=== PATIENT | female | born 1975 | race Caucasian/White ===

== ENCOUNTER → 2018-12-15 12:47 | Outpatient (CLI) | payer SELFPAY ==
[2018-12-21 10:45] LABS: HPV Reflexed? NOT INDICATED
== END ==
PROVIDERS: Referring Provider Obstetrics & Gynecology; Visit Provider Obstetrics & Gynecology
DX: Z12.4 Encounter for screening for malignant neoplasm of cervix (principal)
CPT/HCPCS: 87624; 88175; G0145

== ENCOUNTER 2021-08-13 13:30 | Outpatient (CLI) | payer OTHER, SELFPAY ==
--- NOTE | 2021-08-13 13:30 | CER_PTH ---
PATIENT: SANDRO RODRIGUEZ LOC: [facility] U#:[id number] AGE/SX: 45/F ROOM: RE08/13/[address]: Dr. Gerry Quinteros MD : 1975 BED: DIS: 08/13/2021 SPEC #: [id number] RECD: 08/14/21 09:57 STATUS: NELDA ANANYA #: [id number] RODOLFO: 08/13/21 13:[address]: Gerry Quinteros DEPT: SURGICAL PATHOLOGY RECD BY: Veronica Corbett Tissues: POLYP Procedures: Surgery Specimen Level IV HEADER OPERATION: Polypectomy PRE-OP DIAGNOSIS: Cervical polyp TISSUE SUBMITTED: Cervical polyp MICROSCOPIC DIAGNOSIS Cervical polyp, polypectomy: Inflamed mixed benign ecto- and endocervical polyp. Fragments of benign ecto- and endocervical mucosa, blood and mucous. IAN:maria teresa 08/15/2021 MICROSCOPIC DESCRIPTION Slides are reviewed. GROSS DESCRIPTION Received in fixative is one container labeled with the patient's name and designated cervical polyp. The specimen consists of multiple irregular fragments of sharma-pink polyp that in aggregate measure 1 x 0.5 x 0.3 cm. Also present in the container are multiple fragments of sharma, hemorrhagic, mucoid tissue that in aggregate measure 1.5 x 0.5 x 0.1. The specimen is totally submitted in one cassette. / SJ:rg 08/14/21 TC:5 CPT: 74618
[2021-08-20 17:11] LABS: HPV Reflexed? NOT INDICATED
== END 2021-08-13 23:59 | disposition short-term general hospital (02) ==
LOC: LABSPEC 08-14 09:08
PROVIDERS: Visit Provider Obstetrics & Gynecology
DX: Z12.4 Encounter for screening for malignant neoplasm of cervix (principal); N84.1 Polyp of cervix uteri
CPT/HCPCS: 88175; 88305; G0145